=== PATIENT | male | born 1985 | race Caucasian/White ===

== ENCOUNTER → 2019-08-04 | Outpatient (CLI) | payer BC ==
[2016-07-25 15:55] VITALS: BP 108/68
== END | disposition home or self-care (01) ==
LOC: LAB 09:58
PROVIDERS: ATTEND Obstetrics & Gynecology Reproductive Endocrinology
DX: Z11.59 Encounter for screening for other viral diseases (principal); Z11.9 Encounter for screening for infectious and parasitic diseases, unspecified; Z11.4 Encounter for screening for human immunodeficiency virus [HIV]; Z01.812 Encounter for preprocedural laboratory examination
CPT/HCPCS: 86592; 86703; 86704; 86705; 86803; 87340

== ENCOUNTER → 2020-02-06 | Outpatient (CLI) | payer BC ==
[2016-07-25 15:55] VITALS: BP 108/68
== END | disposition home or self-care (01) ==
LOC: LAB 15:56
PROVIDERS: ATTEND Obstetrics & Gynecology Reproductive Endocrinology
DX: B19.10 Unspecified viral hepatitis B without hepatic coma (principal); R31.9 Hematuria, unspecified
CPT/HCPCS: 36415; 87491; 87517; 87591